=== PATIENT | female | born 1955 | race Caucasian/White ===

== ENCOUNTER 2021-11-09 20:12 | Inpatient (IN) | payer BC, OTHER ==
[2021-11-09 21:51] LABS: Basophils # (A) 0.1 k/uL (0-0.2); Basophils % (A) 1 %; Eosinophils # (A) 0.2 k/uL (0-0.7); Eosinophils % (A) 2 %; HCT 47.4 % (34.0-46.0); HGB 15.8 gm/dL (11.4-16.0); Lymphocytes # (A) 2.3 k/uL (1.0-4.8); Lymphocytes % (A) 30 %; MCH 30.1 pg (25.0-35.0); MCHC 33.4 g/dL (31.0-37.0); MCV 90.3 fL (80.0-100.0); Mean Platelet Volume 8.3; Monocytes # (A) 0.4 k/uL (0-1.0); Monocytes % (A) 6 %; Neutrophils # (A) 4.5 k/uL (1.3-7.7); Neutrophils % (A) 59 %; Platelet Count 186 k/uL (150-450); RBC 5.25 m/uL (3.80-5.40); RDW 13.3 % (11.5-15.5); WBC 7.7 k/uL (3.8-10.6)
[2021-11-09 21:59] LABS: INR 0.9 (<1.2); Partial Thromboplastin Time 22.3 sec (22.0-30.0)
[2021-11-09 22:00] LABS: ALT 41 U/L (4-34); AST 33 U/L (14-36); African American GFR (CKD) >90 (>60 ml/min/1.73 sqM); Albumin 3.9 g/dL (3.5-5.0); Alcohol <10 mg/dL; Alkaline Phosphatase 69 U/L (38-126); Anion Gap 9 mmol/L; Blood Urea Nitrogen 10 mg/dL (7-17); Calcium 9.5 mg/dL (8.4-10.2); Carbon Dioxide 24 mmol/L (22-30); Chloride 104 mmol/L (98-107); Glucose 125 mg/dL (74-99); Non-African American GFR(CKD) >90 (>60 ml/min/1.73 sqM); Potassium 4.1 mmol/L (3.5-5.1); Sodium 137 mmol/L (137-145); Total Bilirubin 0.7 mg/dL (0.2-1.3); Total Protein 6.9 g/dL (6.3-8.2)
--- NOTE | 2021-11-09 22:04 | XR ---
EXAMINATION TYPE: XR chest 2V DATE OF EXAM: 11/09/2021 9:50 PM COMPARISON:Multiple radiographs, with the most recent on CT chest 09/13/2011 TECHNIQUE: Frontal and lateral views of the chest. CLINICAL INDICATION:Female, 65 years old with history of altered mental status; FINDINGS: Lungs/Pleura: There is no evidence of pleural effusion, focal consolidation, or pneumothorax. Pulmonary vascularity: Unremarkable. Heart/mediastinum: Cardiomediastinal silhouette is unremarkable. Musculoskeletal: No acute osseous pathology. IMPRESSION: No acute cardiopulmonary disease/process.
--- NOTE | 2021-11-09 22:22 | CT ---
EXAMINATION TYPE: CT brain wo con DATE OF EXAM: 11/09/2021 COMPARISON: 09/07/2011 HISTORY: weakness, confusion CT DLP: 1127.2 mGycm Automated exposure control for dose reduction was used. Images of the brain obtained without contrast. There is mild cerebral atrophy. There is no mass effect or midline shift. There is no sign of intracr anial hemorrhage. Calvarium is intact. There is normal aeration of the mastoid sinuses. IMPRESSION: Negative unenhanced head CT scan. No change.
--- NOTE | 2021-11-09 23:06 | ED ---
Weakness HPI - General Chief complaint: Weakness Stated complaint: Weakness Source: patient, EMS Mode of arrival: EMS Limitations: no limitations - History of Present Illness Initial comments: 65-year-old female past history of CVA presents emergency Department with altered mental status. Daughter is at bedside and provides the history. The patient was recently hospitalized at [facility] for possible stroke. She had some confusion and acute speech change. CT was performed and the patient was transferred to [facility] for further stroke workup. She does have known aneurysm and therefore MRI was performed. Patient was discharged home with a referral for home care and follow-up with neurosurgery for possible aneurysm intervention. Daughter states that since the patient has been home she's been confused. She forgets to take her insulin. She is unable to cook or care for herself. Daughter believes that she does need placement. She was awake until tomorrow to speak with the primary care physician. Tonight around 5:00 the patient's speech appeared to get worse according to the daughter. She became less responsive and was flushed in the face. At this time she called EMS. Patient arrives with some delayed speech and appears distant. She is able to answer most questions appropriately. She denies any pain. Patient has been taking her Plavix without any missed doses. The remainder of the HPI is limited because the patient's current mentation - Related Data Home Medications Medication Instructions Recorded Confirmed Aspirin EC [Ecotrin] 325 mg PO DAILY 11/09/21 11/09/21 Atorvastatin Calcium [Lipitor] 80 mg PO HS 11/09/21 11/09/21 Clopidogrel [Plavix] 75 mg PO DAILY 11/09/21 11/09/21 Insulin NPH Human Isophane 12 units SQ BID 11/09/21 11/09/21 [NovoLIN N] Insulin Regular, Human [NovoLIN R] 6 unit SQ TID-W/MEALS 11/09/21 11/09/21 Insulin Regular, Human [NovoLIN R] See Protocol SQ PC-TID PRN 11/09/21 11/09/21 Allergies Allergy/AdvReac Type Severity Reaction Status Date / Time codeine AdvReac "Tears her Verified 11/09/21 21:31 stomach up" Review of Systems ROS Statement: Those systems with pertinent positive or pertinent negative responses have been documented in the HPI. ROS Other: All systems not noted in ROS Statement are negative. Past Medical History Past Medical History: CVA/TIA, Eye Disorder, Fibromyalgia, Hyperlipidemia, Osteoarthritis (OA) Additional Past Medical History / Comment(s): HX COLITIS-LAST BIG FLARE UP 2009- LATELY SLIGHT FLARE UP DIARRHEA-FATIQUE- BLOOD IN STOOL-ABD. PAIN-JOINT PAIN, RT KNEE NEEDS REPLACEMENT-GIVES OUT & PAINFUL, GLASSES DAILY USE-MOSTLY FOR DISTANCE History of Any Multi-Drug Resistant Organisms: None Reported Past Surgical History: Cholecystectomy, Joint Replacement Additional Past Surgical History / Comment(s): LEFT KNEE REPLACEMENT Past Anesthesia/Blood Transfusion Reactions: Family History of Problems w/ Anesthesia, Motion Sickness, Postoperative Nausea & Vomiting (PONV) Additional Past Anesthesia/Blood Transfusion Reaction / Comment(s): AMUSEMENT RIDES OR ANYTHING THAT SPINS, MOM ALSO GETS PONV Past Psychological History: No Psychological Hx Reported Past Alcohol Use History: Occasional Past Drug Use History: None Reported - Past Family History Mother Family Medical History: Cancer, Thyroid Disorder Additional Family Medical History / Comment(s): CHOLECYSTECTOMY, SKIN CA ,HAD GOITER REMOVED AT A VERY YOUNG AGE Father Family Medical History: Dementia, Hyperlipidemia, Prostate Disorder Additional Family Medical History / Comment(s): ALZHEIMER'S DISEASE General Exam Limitations: no limitations Course Vital Signs 11/09/21 11/09/21 11/09/21 20:21 22:37 23:40 Temperature 98 F Pulse Rate 68 68 87 Respiratory 18 18 20 Rate Blood Pressure 148/83 115/66 120/86 O2 Sat by Pulse 96 98 95 Oximetry EKG Findings - EKG Comments: EKG Findings:: EKG demonstrates sinus rhythm with a ventricular rate of 64. AK interval 185. QRS 98. QTC of 423. No acute ST segment elevations or depressions concerning for ischemic changes Medical Decision Making - Medical Decision Making On arrival patient is placed into room 3. A thorough history and physical exam was performed. I did review the patient's packet from [place]. Patient does not feel as if her symptoms are any worse than when she was discharged from [place]. I did recommend repeating laboratory studies and imaging. Labs are reviewed and demonstrate no acute process. Urine is pending. CT of the brain as well as CT angiography is performed because the patient's own aneurysms. No acute findings on the CT of the brain. Aneurysm's are identified on the CT angiography without acute bleed. As the daughter states that the patient cannot take care of herself any longer she will be admitted for neurology consultation and possible rehab placement. Spoke with Dr. Dumont who agreed to admit the patient - Lab Data Result diagrams: 11/09/21 21:47 11/09/21 21:47 Lab Results 11/09/21 11/09/21 11/09/21 Range/Units 21:47 21:47 21:47 WBC 7.7 (3.8-10.6) k/uL RBC 5.25 (3.80-5.40) m/uL Hgb 15.8 (11.4-16.0) gm/dL Hct 47.4 H (34.0-46.0) % MCV 90.3 (80.0-100.0) fL MCH 30.1 (25.0-35.0) pg MCHC 33.4 (31.0-37.0) g/dL RDW 13.3 (11.5-15.5) % Plt Count 186 (150-450) k/uL MPV 8.3 Neutrophils % 59 % Lymphocytes % 30 % Monocytes % 6 % Eosinophils % 2 % Basophils % 1 % Neutrophils # 4.5 (1.3-7.7) k/uL Lymphocytes # 2.3 (1.0-4.8) k/uL Monocytes # 0.4 (0-1.0) k/uL Eosinophils # 0.2 (0-0.7) k/uL Basophils # 0.1 (0-0.2) k/uL PT 10.0 (9.0-12.0) sec INR 0.9 (<1.2) APTT 22.3 (22.0-30.0) sec Sodium 137 (137-145) mmol/L Potassium 4.1 (3.5-5.1) mmol/L Chloride 104 (98-107) mmol/L Carbon Dioxide 24 (22-30) mmol/L Anion Gap 9 mmol/L BUN 10 (7-17) mg/dL Creatinine 0.62 (0.52-1.04) mg/dL Est GFR (CKD-EPI)AfAm >90 (>60 ml/min/1.73 sqM) Est GFR (CKD-EPI)NonAf >90 (>60 ml/min/1.73 sqM) Glucose 125 H (74-99) mg/dL Calcium 9.5 (8.4-10.2) mg/dL Total Bilirubin 0.7 (0.2-1.3) mg/dL AST 33 (14-36) U/L ALT 41 H (4-34) U/L Alkaline Phosphatase 69 (38-126) U/L Troponin I (0.000-0.034) ng/mL Total Protein 6.9 (6.3-8.2) g/dL Albumin 3.9 (3.5-5.0) g/dL Serum Alcohol <10 mg/dL 11/09/21 Range/Units 21:47 WBC (3.8-10.6) k/uL RBC (3.80-5.40) m/uL Hgb (11.4-16.0) gm/dL Hct (34.0-46.0) % MCV (80.0-100.0) fL MCH (25.0-35.0) pg MCHC (31.0-37.0) g/dL RDW (11.5-15.5) % Plt Count (150-450) k/uL MPV Neutrophils % % Lymphocytes % % Monocytes % % Eosinophils % % Basophils % % Neutrophils # (1.3-7.7) k/uL Lymphocytes # (1.0-4.8) k/uL Monocytes # (0-1.0) k/uL Eosinophils # (0-0.7) k/uL Basophils # (0-0.2) k/uL PT (9.0-12.0) sec INR (<1.2) APTT (22.0-30.0) sec Sodium (137-145) mmol/L Potassium (3.5-5.1) mmol/L Chloride (98-107) mmol/L Carbon Dioxide (22-30) mmol/L Anion Gap mmol/L BUN (7-17) mg/dL Creatinine (0.52-1.04) mg/dL Est GFR (CKD-EPI)AfAm (>60 ml/min/1.73 sqM) Est GFR (CKD-EPI)NonAf (>60 ml/min/1.73 sqM) Glucose (74-99) mg/dL Calcium (8.4-10.2) mg/dL Total Bilirubin (0.2-1.3) mg/dL AST (14-36) U/L ALT (4-34) U/L Alkaline Phosphatase (38-126) U/L Troponin I <0.012 (0.000-0.034) ng/mL Total Protein (6.3-8.2) g/dL Albumin (3.5-5.0) g/dL Serum Alcohol mg/dL Disposition Clinical Impression: Acute encephalopathy, History of CVA (cerebrovascular accident), Cerebral aneurysm Disposition: ADMITTED IP TO THIS [facility] Condition: Stable Is patient prescribed a controlled substance at d/c from ED?: No Referrals: None,Stated [Primary Care Provider] - 1-2 days Decision to Admit Reason: Admit from EC Decision Date: 11/09/21 Decision Time: 23:57
--- NOTE | 2021-11-09 23:12 | CT ---
EXAMINATION TYPE: CT angio head neck DATE OF EXAM: 11/09/2021 COMPARISON: None HISTORY: ams, confusion, weakness CT DLP: 568.1 mGycm Automated exposure control for dose reduction was used. CONTRAST: Performed with IV Contrast, patient injected with 65cc mL of Isovue 370. Images obtained from the aortic arch to the vertex of the brain with IV contrast. There are Three-D p ostprocessed images. There is normal branching pattern of the great vessels on the aortic arch. There is bilateral arteria l flow in the subclavian arteries. There is arterial flow in both vertebral arteries. There is arteri al flow in the common internal and external carotid arteries bilaterally. There is wide patency of th e carotid artery bifurcations. There is no evidence of carotid or vertebral artery aneurysm or dissec tion. No evidence of stenosis. There is arterial flow in the anterior middle and posterior cerebral arteries. There are bilateral an eurysms at the anterior communicating artery. On the right side this measures 4 mm. Left-sided aneury sm measures 5 mm. There is bulbous appearance of the tip of the basilar artery that measures 4 mm. Th ere is no evidence of intracranial arterial hemodynamic stenosis. There is normal contrast opacificat ion of the venous sinuses. There is no mass effect. There is no sign of neovascularity. IMPRESSION: Negative CT angiogram of the neck. 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 There is a minimal aneurysm of the tip o f the basilar artery. No evidence of intracranial arterial stenosis.
[2021-11-09] MEDS ORDERED: NALOXONE 0.4 MG/ML 1 ML VIAL IV PRN (23:57)
[2021-11-10 00:18] LABS: Appearance,Urine Clear (Clear); Bilirubin,Urine Negative (Negative); Blood,Urine Negative (Negative); Color,Urine Light Yellow; Glucose,Urine (UA) Negative (Negative); Ketones,Urine Negative (Negative); Leukocyte Esterase,Urine Negative (Negative); Nitrite,Urine Negative (Negative); PH, Urine 5.5 (5.0-8.0); Protein,Urine Negative (Negative); Urobilinogen,Urine <2.0 mg/dL (<2.0)
[2021-11-10 00:23] LABS: Specific Gravity,Urine 1.047 (1.001-1.035)
[2021-11-10 00:30] LABS: Amphetamine Screen,Urine Not Detected (NotDetected); Barbiturate Screen,Urine Not Detected (NotDetected); Benzodiazepines Screen,Urine Not Detected (NotDetected); Cocaine Screen,Urine Not Detected (NotDetected); Methadone Screen, Urine Not Detected (NotDetected); Opiate Screen,Urine Not Detected (NotDetected); Oxycodone Screen, Urine Not Detected (NotDetected); Phencyclidine Screen,Urine Not Detected (NotDetected); Tricyclic Antidepressant,Urine Not Detected (NotDetected); Urn Cannabinoid Scrn Not Detected (NotDetected)
[2021-11-10] MEDS: ATORVASTATIN 80 MG TAB PO SCH ×2 (02:43→20:10)
--- NOTE | 2021-11-10 03:05 | P.HPIM ---
History of Present Illness H&P Date: 11/09/21 Chief Complaint: Generalized weakness 65-year-old female with diabetes mellitus hypertension recent stroke Patient reports experiencing stroke event about 10 days ago which resulted in expressive aphasia. Patient was also found to have brain aneurysms during that hospital stay and she was told to follow up outpatient. She was discharged home at that time, she thinks that she was doing fine up until today when she noticed that she is doing increasingly weak she denies any falls she denies any new onset focal neurologic deficits however she does report that she wasn't feeling well having difficulty with getting around in general. She otherwise denies any fevers or chills nausea or vomiting denies any chest pain or trouble breathing denies any vision changes hearing changes or any new onset focal neuro deficits. Per ED doctor her daughter brought her lives with her she noticed that her mom was not acting normally today and she has been getting increasingly hard and difficult to take care of. However when the patient is asked she reports that she is able to go to the bathroom on her own believes herself make meals change her close and get around. However she is was facing some challenges today that she couldn't exactly tell me or explain to me When asked about her goals she prefers to go home with some home therapy. She would like to avoid any rehab places. Otherwise she claims to be compliant with her medications she voices some concerns regarding the diagnosis of brain aneurysm. Her blood work in the ED came back unremarkable In the ED brain imaging was performed no acute pathology was noted Again patient denies any falling denies using any assistive devices of ambulation but she does report some difficulty with expressive aphasia Review of Systems Pertinent positives as noted in HPI. All other systems were reviewed and are negative Past Medical History Past Medical History: CVA/TIA, Eye Disorder, Fibromyalgia, Hyperlipidemia, Osteoarthritis (OA) Additional Past Medical History / Comment(s): HX COLITIS-LAST BIG FLARE UP 2009- LATELY SLIGHT FLARE UP DIARRHEA-FATIQUE- BLOOD IN STOOL-ABD. PAIN-JOINT PAIN, RT KNEE NEEDS REPLACEMENT-GIVES OUT & PAINFUL, GLASSES DAILY USE-MOSTLY FOR DISTANCE History of Any Multi-Drug Resistant Organisms: None Reported Past Surgical History: Cholecystectomy, Joint Replacement Additional Past Surgical History / Comment(s): LEFT KNEE REPLACEMENT Past Anesthesia/Blood Transfusion Reactions: Family History of Problems w/ Anesthesia, Motion Sickness, Postoperative Nausea & Vomiting (PONV) Additional Past Anesthesia/Blood Transfusion Reaction / Comment(s): AMUSEMENT RIDES OR ANYTHING THAT SPINS, MOM ALSO GETS PONV Past Psychological History: No Psychological Hx Reported Past Alcohol Use History: Occasional Past Drug Use History: None Reported - Past Family History Mother Family Medical History: Cancer, Thyroid Disorder Additional Family Medical History / Comment(s): CHOLECYSTECTOMY, SKIN CA ,HAD GOITER REMOVED AT A VERY YOUNG AGE Father Family Medical History: Dementia, Hyperlipidemia, Prostate Disorder Additional Family Medical History / Comment(s): ALZHEIMER'S DISEASE Medications and Allergies Home Medications Medication Instructions Recorded Confirmed Type Aspirin EC [Ecotrin] 325 mg PO DAILY 11/09/21 11/09/21 History Atorvastatin Calcium [Lipitor] 80 mg PO HS 11/09/21 11/09/21 History Clopidogrel [Plavix] 75 mg PO DAILY 11/09/21 11/09/21 History Insulin NPH Human Isophane 12 units SQ BID 11/09/21 11/09/21 History [NovoLIN N] Insulin Regular, Human [NovoLIN R] 6 unit SQ TID-W/MEALS 11/09/21 11/09/21 History Insulin Regular, Human [NovoLIN R] See Protocol SQ PC-TID PRN 11/09/21 11/09/21 History Allergies Allergy/AdvReac Type Severity Reaction Status Date / Time codeine AdvReac "Tears her Verified 11/09/21 21:31 stomach up" Physical Exam Vitals: Vital Signs Temp Pulse Resp BP Pulse Ox 11/09/21 23:40 87 20 120/86 95 11/09/21 22:37 68 18 115/66 98 11/09/21 20:21 98 F 68 18 148/83 96 Intake and Output 11/09/21 11/09/21 11/10/21 14:59 22:59 06:59 Other: Weight 86.183 kg Constitutional: No acute distress, conversant, pleasant Eyes: Anicteric sclerae, moist conjunctiva, Pupils equal round reactive to light ENMT: NC/AT Oropharynx clear, no erythema, or exudates Neck: Supple, FROM, no masses, or JVD No carotid bruits No thyromegaly Lungs: Clear to auscultation Clear to percussion Normal respiratory effort, no accessory muscle use Cardiovascular: Heart regular in rate and rhythm, No murmurs, gallops, or rubs No peripheral edema Abdominal: Soft Nontender, no guarding, rebound or rigidity Abdomen moving with respiration Normoactive bowel sounds No hepatomegaly, No splenomegaly No palpable mass No abdominal wall hernia noted Skin: Normal temperature, tone, texture, turgor No induration No subcutaneous nodules No rash, lesions No ulcers Extremities: No digital cyanosis No clubbing Pedal pulses intact and symmetrical Radial pulses intact and symmetrical No calf tenderness Psychiatric: Alert and oriented to person, place and time Appropriate affect fair judgement Neuro Muscles Strength 5/5 in all 4 extremities Sensation to light touch grossly present throughout Cranial nerves II-XII grossly intact No focal sensory deficits Finger-nose exam unremarkable Lymphatics: no palpable cervical or supraclavicular , or inguinal lymph nodes Results CBC & Chem 7: 11/09/21 21:47 11/09/21 21:47 Labs: Abnormal Lab Results - Last 24 Hours (Table) 11/09/21 11/09/21 Range/Units 21:47 21:47 Hct 47.4 H (34.0-46.0) % Glucose 125 H (74-99) mg/dL ALT 41 H (4-34) U/L Assessment and Plan Assessment: Expressive aphasia and generalized weakness Recent stroke event about 10 days ago Brain aneurysm Plan Supportive care Fall precautions Neurology evaluation Neurochecks every 2 hours Resume home medications aspirin, statin, Plavix Cardiac diet PT eval Diabetes mellitus Resume home insulin dosing Is full code DVT prophylaxis mechanical Anticipated length of stay less than 2 midnights
[2021-11-10 05:38] LABS: Basophils # (A) 0.1 k/uL (0-0.2); Basophils % (A) 1 %; Eosinophils # (A) 0.2 k/uL (0-0.7); Eosinophils % (A) 2 %; HCT 48.7 % (34.0-46.0); HGB 16.3 gm/dL (11.4-16.0); Lymphocytes # (A) 2.2 k/uL (1.0-4.8); Lymphocytes % (A) 26 %; MCH 30.6 pg (25.0-35.0); MCHC 33.5 g/dL (31.0-37.0); MCV 91.5 fL (80.0-100.0); Mean Platelet Volume 8.2; Monocytes # (A) 0.5 k/uL (0-1.0); Monocytes % (A) 6 %; Neutrophils # (A) 5.3 k/uL (1.3-7.7); Neutrophils % (A) 64 %; Platelet Count 174 k/uL (150-450); RBC 5.32 m/uL (3.80-5.40); RDW 13.5 % (11.5-15.5); WBC 8.3 k/uL (3.8-10.6)
[2021-11-10 05:52] LABS: African American GFR (CKD) >90 (>60 ml/min/1.73 sqM); Anion Gap 7 mmol/L; Blood Urea Nitrogen 10 mg/dL (7-17); Calcium 9.6 mg/dL (8.4-10.2); Carbon Dioxide 25 mmol/L (22-30); Chloride 106 mmol/L (98-107); Glucose 144 mg/dL (74-99); Non-African American GFR(CKD) >90 (>60 ml/min/1.73 sqM); Potassium 3.9 mmol/L (3.5-5.1); Sodium 138 mmol/L (137-145)
[2021-11-10 07:26] LABS: Glucose,Whole Blood 151 mg/dL (75-99)
[2021-11-10] MEDS: INSULIN REGULAR 100 UNIT/ML VIAL (IV) SQ SCH ×3 (08:19→17:14)
[2021-11-10] MEDS: CLOPIDOGREL 75 MG TAB PO SCH (08:19)
[2021-11-10] MEDS: INSULIN NPH 300 UNIT/3 ML VIAL SQ SCH ×2 (08:19→21:20)
[2021-11-10] MEDS: ASPIRIN 325 MG TAB PO SCH (08:19)
[2021-11-10 11:10] LABS: Glucose,Whole Blood 232 mg/dL (75-99)
--- NOTE | 2021-11-10 15:29 | P.PN ---
Subjective Progress Note Date: 11/10/21 History of present illness: 65-year-old female with diabetes mellitus hypertension recent stroke Patient reports experiencing stroke event about 10 days ago which resulted in expressive aphasia. Patient was also found to have brain aneurysms during that hospital stay and she was told to follow up outpatient. She was discharged home at that time, she thinks that she was doing fine up until today when she noticed that she is doing increasingly weak she denies any falls she denies any new onset focal neurologic deficits however she does report that she wasn't feeling well having difficulty with getting around in general. She otherwise denies any fevers or chills nausea or vomiting denies any chest pain or trouble breathing denies any vision changes hearing changes or any new onset focal neuro deficits. Per ED doctor her daughter brought her lives with her she noticed that her mom was not acting normally today and she has been getting increasingly hard and difficult to take care of. However when the patient is asked she reports that she is able to go to the bathroom on her own believes herself make meals change her close and get around. However she is was facing some challenges today that she couldn't exactly tell me or explain to me When asked about her goals she prefers to go home with some home therapy. She would like to avoid any rehab places. Otherwise she claims to be compliant with her medications she voices some concerns regarding the diagnosis of brain aneurysm. Her blood work in the ED came back unremarkable In the ED brain imaging was performed no acute pathology was noted Again patient denies any falling denies using any assistive devices of ambulation but she does report some difficulty with expressive aphasia Interval history: Patient was examined at bedside. She is awake alert oriented 2. She denies any chest pain or shortness of breath. Patient seems to be confused and having difficulty finding words. Otherwise no acute changes reported overnight. Objective - Vital Signs Vital signs: Vital Signs Temp 97.9 F 11/10/21 07:00 Pulse 68 11/10/21 07:00 Resp 18 11/10/21 07:00 BP 118/79 11/10/21 07:00 Pulse Ox 94 L 11/10/21 07:31 Intake & Output 11/09/21 11/10/21 11/10/21 18:59 06:59 18:59 Weight 86.183 kg Other: # Voids 2 - Exam General: non toxic, no distress, appears at stated age Derm: warm, dry Head: atraumatic, normocephalic, symmetric Eyes: EOMI, no lid lag, anicteric sclera Mouth: no lip lesion, mucus membranes moist Cardiovascular: S1S2 reg, no murmur, positive posterior tibial pulse bilateral, Lungs: CTA bilateral, no rhonchi, no rales , no accessory muscle use Abdominal: soft, nontender to palpation, no guarding, no appreciable o rganomegaly Ext: no gross muscle atrophy, no edema, no contractures Neuro: CN II-XI grossly intact, no focal neuro deficits Psych: Alert, oriented 2, appropriate affect - Labs CBC & Chem 7: 11/10/21 05:18 11/10/21 05:18 Labs: Abnormal Lab Results - Last 24 Hours (Table) 11/09/21 11/09/21 11/09/21 Range/Units 21:47 21:47 23:50 Hgb (11.4-16.0) gm/dL Hct 47.4 H (34.0-46.0) % Glucose 125 H (74-99) mg/dL POC Glucose (mg/dL) (75-99) mg/dL ALT 41 H (4-34) U/L Ur Specific [place] 1.047 H (1.001-1.035) 11/10/21 11/10/21 11/10/21 Range/Units 05:18 05:18 07:25 Hgb 16.3 H (11.4-16.0) gm/dL Hct 48.7 H (34.0-46.0) % Glucose 144 H (74-99) mg/dL POC Glucose (mg/dL) 151 H (75-99) mg/dL ALT (4-34) U/L Ur Specific [place] (1.001-1.035) 11/10/21 Range/Units 11:08 Hgb (11.4-16.0) gm/dL Hct (34.0-46.0) % Glucose (74-99) mg/dL POC Glucose (mg/dL) 232 H (75-99) mg/dL ALT (4-34) U/L Ur Specific [place] (1.001-1.035) Assessment and Plan Assessment: #Expressive aphasia and generalized weakness -Recent stroke event about 10 days ago -Recently diagnosed Brain aneurysm -Neurology following -MRI the patient without contrast -PT/OT evaluation -Fall precautions -Neurochecks every 2 hours -Obtain records from [facility] -Resume home medications aspirin, high-dose statin, Plavix -Cardiac and diabetic diet diet #Type 2 diabetes mellitus Resume home insulin dosing Full code DVT prophylaxis with subcutaneous Lovenox Anticipated length of stay less than 2
[2021-11-10] MEDS: ENOXAPARIN 40 MG/0.4 ML SYRINGE SQ SCH (15:54)
[2021-11-10 16:29] LABS: Glucose,Whole Blood 119 mg/dL (75-99)
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
--- NOTE | 2021-11-10 19:00 | EEG ---
ELECTROENCEPHALOGRAM REPORT DATE OF SERVICE: 11/10/2021 PREAMBLE: This is a 65-year-old female with a history of recent stroke who has altered mental status. This study is performed to evaluate for any encephalopathy versus any epileptiform activity. EEG FINDINGS: This is a 21-channel digital EEG recorded with video component, utilizing 10/20 international system with referential and bipolar montages. Background consists of well-developed but moderately well regulated, mixed frequencies of 8 hertz alpha with 6 hertz theta activity seen in bihemispheric region. Some low-voltage beta was seen in the frontal region. Background does not seem to be clearly reactive to eye opening or closing. There is near-constant focal dysmorphic delta and some theta slowing seen in the left temporal region. Some sharply contoured waves were seen in the left temporal region, but did not appear epileptiform. Some stage II sleep was seen with presence of sleep spindles. Photic driving response was not seen. No focal or generalized epileptiform activity was seen. EKG channel showed no obvious arrhythmia. IMPRESSION: This is an abnormal EEG due to: 1. Background slowing of mild to moderate degree, suggestive of encephalopathy of toxic, metabolic or vascular causes. 2. Near-continuous focal slowing in polymorphic delta and theta range involving the left temporal region. This is suggestive of focal cortical neuronal dysfunction and may suggest underlying structural abnormality. 3. Some left temporal sharply contoured waves were seen which did not appear clearly epileptiform. If your suspicion for seizure is high, suggest prolonged, sleep- deprived EEG. Clinical correlation also recommended. MMNATI / HARRISON: [id number] /
[2021-11-10 20:58] LABS: Glucose,Whole Blood 230 mg/dL (75-99)
--- NOTE | 2021-11-10 22:14 | MR ---
EXAMINATION TYPE: MR brain wo con DATE OF EXAM: 11/10/2021 COMPARISON: CT scan yesterday HISTORY: Expressive aphasia. Multiplanar multiecho imaging of the brain without contrast. There is a 20 x 8 mm area of increased signal on the FLAIR images within the anterior left thalamus. This has also slightly increased signal on the diffusion images and consistent with subacute infarct. There is no mass effect. There is no midline shift. On the FLAIR images there are multiple scattered white matter high signal foci at the hopper-white pauline er junction of both cerebral hemispheres. These measure up to 1 cm and total number is more than 25. The corpus callosum appears intact. The brainstem appears intact. There is no evidence of posterior f kelly mass. Sella turcica appears normal. Optic chiasm appears normal. There is no evidence of orbital mass. IMPRESSION: Subacute anterior left thalamic infarct without change in size compared to the CT scan yesterday. Multiple white matter high signal foci in posterior bilateral hemispheres are somewhat peripheral and consistent with microvascular ischemia. No evidence of cerebral cortical infarct.
[2021-11-11 07:10] LABS: Glucose,Whole Blood 170 mg/dL (75-99)
[2021-11-11] MEDS: INSULIN REGULAR 100 UNIT/ML VIAL (IV) SQ SCH ×2 (09:11→18:19)
[2021-11-11] MEDS: INSULIN NPH 300 UNIT/3 ML VIAL SQ SCH (09:13)
[2021-11-11] MEDS: CLOPIDOGREL 75 MG TAB PO SCH (09:16)
[2021-11-11] MEDS: ENOXAPARIN 40 MG/0.4 ML SYRINGE SQ SCH (09:16)
[2021-11-11] MEDS: ASPIRIN 325 MG TAB PO SCH (09:16)
[2021-11-11 11:32] LABS: Glucose,Whole Blood 248 mg/dL (75-99)
[2021-11-11 11:34] VITALS: BMI 31.6
--- NOTE | 2021-11-11 13:18 | P.PN ---
Subjective Progress Note Date: 11/11/21 History of present illness: 65-year-old female with diabetes mellitus hypertension recent stroke Patient reports experiencing stroke event about 10 days ago which resulted in expressive aphasia. Patient was also found to have brain aneurysms during that hospital stay and she was told to follow up outpatient. She was discharged home at that time, she thinks that she was doing fine up until today when she noticed that she is doing increasingly weak she denies any falls she denies any new onset focal neurologic deficits however she does report that she wasn't feeling well having difficulty with getting around in general. She otherwise denies any fevers or chills nausea or vomiting denies any chest pain or trouble breathing denies any vision changes hearing changes or any new onset focal neuro deficits. Per ED doctor her daughter brought her lives with her she noticed that her mom was not acting normally today and she has been getting increasingly hard and difficult to take care of. However when the patient is asked she reports that she is able to go to the bathroom on her own believes herself make meals change her close and get around. However she is was facing some challenges today that she couldn't exactly tell me or explain to me When asked about her goals she prefers to go home with some home therapy. She would like to avoid any rehab places. Otherwise she claims to be compliant with her medications she voices some concerns regarding the diagnosis of brain aneurysm. Her blood work in the ED came back unremarkable In the ED brain imaging was performed no acute pathology was noted Again patient denies any falling denies using any assistive devices of ambulation but she does report some difficulty with expressive aphasia Interval history: Patient was examined at bedside. She is awake alert oriented 2. She denies any chest pain or shortness of breath. Patient seems to be confused and having difficulty finding words. Otherwise no acute changes reported overnight. Objective - Vital Signs Vital signs: Vital Signs Temp 98.2 F 11/11/21 07:00 Pulse 77 11/11/21 07:00 Resp 17 11/11/21 07:00 BP 131/86 11/11/21 07:00 Pulse Ox 95 11/11/21 08:54 Intake & Output 11/10/21 11/11/21 11/11/21 18:59 06:59 18:59 Intake Total 118 118 Balance 118 118 Weight 86.183 kg Intake: Oral 118 118 Other: # Voids 1 2 - Exam General: non toxic, no distress, appears at stated age Derm: warm, dry Head: atraumatic, normocephalic, symmetric Eyes: EOMI, no lid lag, anicteric sclera Mouth: no lip lesion, mucus membranes moist Cardiovascular: S1S2 reg, no murmur, positive posterior tibial pulse bilateral, Lungs: CTA bilateral, no rhonchi, no rales , no accessory muscle use Abdominal: soft, nontender to palpation, no guarding, no appreciable organomegaly Ext: no gross muscle atrophy, no edema, no contractures Neuro: CN II-XI grossly intact, no focal neuro deficits Psych: Alert, oriented 2, appropriate affect - Labs CBC & Chem 7: 11/10/21 05:18 11/10/21 05:18 Labs: Abnormal Lab Results - Last 24 Hours (Table) 11/10/21 11/10/21 11/10/21 Range/Units 05:18 16:27 20:57 POC Glucose (mg/dL) 119 H 230 H (75-99) mg/dL Hemoglobin A1c 13.8 H (0.0-6.0) % 11/11/21 11/11/21 Range/Units 07:08 11:30 POC Glucose (mg/dL) 170 H 248 H (75-99) mg/dL Hemoglobin A1c (0.0-6.0) % Assessment and Plan Assessment: #Expressive aphasia and generalized weakness -Recent stroke event about 10 days ago -Recently diagnosed Brain aneurysm. Neurology recommended to follow-up intervention as an outpatient -Neurology following -MRI the patient without contrast showed subacute anterior left thalamic infarct without change in size in comparison to computed tomography scan. -PT/OT evaluation -Fall precautions -Neurochecks every 2 hours -Obtain records from [facility] at second -Resume home medications aspirin, high-dose statin, Plavix -Cardiac and diabetic diet diet #Type 2 diabetes mellitus with uncontrolled hyperglycemia -A1c is 13.8 -Discontinue NPH insulin and start basal bolus insulin with Levemir and NovoLog -Add lisinopril 2.5 mg daily Full code DVT prophylaxis with subcutaneous Lovenox Anticipated length of stay less than 2
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
[2021-11-11 16:46] LABS: Glucose,Whole Blood 148 mg/dL (75-99)
[2021-11-11] MEDS ORDERED: INSULIN ASPART (NovoLOG) 100 UNIT/ML VIAL SQ SCH ×3 (17:30)
[2021-11-11] MEDS: INSULIN ASPART (NovoLOG) 100 UNIT/ML VIAL SQ SCH (18:20)
[2021-11-11] MEDS: ATORVASTATIN 80 MG TAB PO SCH (20:34)
[2021-11-11 20:41] LABS: Glucose,Whole Blood 205 mg/dL (75-99)
[2021-11-11] MEDS: INSULIN DETEMIR (LEVEMIR) 100 UNIT/ML SYR SQ SCH (20:46)
[2021-11-12 07:10] LABS: Glucose,Whole Blood 144 mg/dL (75-99)
[2021-11-12] MEDS: ENOXAPARIN 40 MG/0.4 ML SYRINGE SQ SCH (08:37)
[2021-11-12] MEDS: CLOPIDOGREL 75 MG TAB PO SCH (08:38)
[2021-11-12] MEDS: INSULIN ASPART (NovoLOG) 100 UNIT/ML VIAL SQ SCH ×3 (08:38→19:36)
[2021-11-12] MEDS: ASPIRIN 325 MG TAB PO SCH (08:38)
[2021-11-12] MEDS: INSULIN DETEMIR (LEVEMIR) 100 UNIT/ML SYR SQ SCH ×2 (08:38→20:51)
--- NOTE | 2021-11-12 10:36 | P.CRDCN ---
History of Present Illness Consult date: 11/12/21 History of present illness: HISTORY OF PRESENT ILLNESS: This is a 65-year-old female with a past medical history significant for diabetes, hypertension, hyperlipidemia, nicotine dependence, and recent CVA. Patient does not follow with a insolvency practitioner. We have been asked to see the patient in consultation for PFO. Patient examined at the bedside. Patient was recently hospitalized at [facility] in [place]. Patient suffered a CVA of the left basal ganglia at that time. Patient underwent ALIDA revealing ejection fraction 55-60%, mild mitral regurgitation, left atrium showed no evidence of thrombus and that each show cavity or appendage. Right Atrium appeared normal. Doppler showed small bidirectional atrial level shunt. Small PFO noted. She also underwent a CT angios which did not reveal any significant stenosis of the carotid arteries. The patient underwent MRI at our facility revealing acute 6 x 3 mm peripheral subcortical infarct right parietal lobe. Patient denies any chest pain or pressure. She denies shortness of breath. She denies dizziness or lightheadedness. Patient denies any history of atrial fibrillation. She denies having any palpitations. * EKG reveals sinus mechanism with no signs of acute ischemia. * Chest xray no active cardio Pulmonary disease * CT brain: There is 1.7 cm area of low attenuation anterior left thalamus consistent with acute or subacute lacunar infarct and is a change compared to old exam. * Brain MRI: Acute 6 x 3 mm peripheral subcortical infarct right parietal lobe * Laboratory data: WBC 8.3. Hemoglobin 15.8. Platelet count 174. Sodium 138. Potassium 3.9. BUN 10. Creatinine 0.68. Troponin negative 1. TSH 4.130. * Current home cardiac medications include Plavix 75 mg daily, Lipitor 80 mg daily, and aspirin 325 mg daily REVIEW OF SYSTEMS: At the time of my exam: CONSTITUTIONAL: Denies fever or chills. HEENT: Denies blurred vision, vision changes, or eye pain. Denies hemoptysis CARDIOVASCULAR: Denies chest pain. Denies orthopnea. Denies PND. Denies palpitations RESPIRATORY: Denies shortness of breath. GASTROINTESTINAL: Denies abdominal pain. Denies nausea or vomiting. HEMATOLOGIC: Denies bleeding disorders. GENITOURINARY: Denies any blood in urine. SKIN: Denies pruitis. Denies rash. PHYSICAL EXAM: VITAL SIGNS: Reviewed. GENERAL: Well-developed in no acute distress. HEENT: Head is normocephalic. Pupils are equal, round. Sclerae anicteric. Mucous membranes of the mouth are moist. Neck supple. No JVD or thyromegaly LUNGS: Respirations even and unlabored. Lungs essentially clear to auscultation bilaterally. HEART: Regular rate and rhythm. S1 and S2 heard. ABDOMEN: Soft. Nondistended. Nontender. EXTREMITIES: Normal range of motion. No clubbing or cyanosis. Peripheral pulses intact. No lower extremity edema NEUROLOGIC: Awake and alert. Oriented x 3. ASSESSMENT: Acute CVA, right parietal lobe Recent CVA of left basal ganglia PFO Hypertension Hyperlipidemia Diabetes Nicotine dependence, patient states she quit smoking last week PLAN: Continue current cardiac medications Neurology following Continue telemetry monitoring NPO Patient to undergo PFO today with Dr. Bird Further recommendations pending patient course Nurse practitioner note has been reviewed by physician. Signing provider agrees with the documented findings, assessment, and plan of care. Past Medical History Past Medical History: CVA/TIA, Eye Disorder, Fibromyalgia, Hyperlipidemia, Osteoarthritis (OA) Additional Past Medical History / Comment(s): HX COLITIS-LAST BIG FLARE UP 2009- LATELY SLIGHT FLARE UP DIARRHEA-FATIQUE- BLOOD IN STOOL-ABD. PAIN-JOINT PAIN, RT KNEE NEEDS REPLACEMENT-GIVES OUT & PAINFUL, GLASSES DAILY USE-MOSTLY FOR DISTANCE History of Any Multi-Drug Resistant Organisms: None Reported Past Surgical History: Cholecystectomy, Joint Replacement Additional Past Surgical History / Comment(s): LEFT KNEE REPLACEMENT Past Anesthesia/Blood Transfusion Reactions: Family History of Problems w/ Anesthesia, Motion Sickness, Postoperative Nausea & Vomiting (PONV) Additional Past Anesthesia/Blood Transfusion Reaction / Comment(s): AMUSEMENT RIDES OR ANYTHING THAT SPINS, MOM ALSO GETS PONV Past Psychological History: No Psychological Hx Reported Past Alcohol Use History: Occasional Past Drug Use History: None Reported - Past Family History Mother Family Medical History: Cancer, Thyroid Disorder Additional Family Medical History / Comment(s): CHOLECYSTECTOMY, SKIN CA ,HAD GOITER REMOVED AT A VERY YOUNG AGE Father Family Medical History: Dementia, Hyperlipidemia, Prostate Disorder Additional Family Medical History / Comment(s): ALZHEIMER'S DISEASE Medications and Allergies Home Medications Medication Instructions Recorded Confirmed Type Aspirin EC [Ecotrin] 325 mg PO DAILY 11/09/21 11/09/21 History Atorvastatin Calcium [Lipitor] 80 mg PO HS 11/09/21 11/09/21 History Clopidogrel [Plavix] 75 mg PO DAILY 11/09/21 11/09/21 History Insulin NPH Human Isophane 12 units SQ BID 11/09/21 11/09/21 History [NovoLIN N] Insulin Regular, Human [NovoLIN R] 6 unit SQ TID-W/MEALS 11/09/21 11/09/21 History Insulin Regular, Human [NovoLIN R] See Protocol SQ PC-TID PRN 11/09/21 11/09/21 History Allergies Allergy/AdvReac Type Severity Reaction Status Date / Time codeine AdvReac "Tears her Verified 11/09/21 21:31 stomach up" Physical Exam Vitals: Vital Signs Temp Pulse Resp BP Pulse Ox 11/12/21 07:00 98.5 F 73 17 106/69 96 11/12/21 01:38 98.1 F 59 L 18 125/81 97 11/11/21 20:00 17 11/11/21 19:19 98.6 F 79 16 132/84 96 11/11/21 14:20 98.3 F 82 17 123/80 95 11/11/21 08:54 95 Intake and Output 11/11/21 11/12/21 11/12/21 22:59 06:59 14:59 Intake Total 118 118 Balance 118 118 Intake: Oral 118 118 Results 11/10/21 05:18 11/10/21 05:18 Current Medications Generic Name Dose Route Start Last Admin Trade Name Freq PRN Reason Stop Dose Admin Aspirin 325 mg 11/10/21 09:00 11/12/21 08:38 Aspirin 325 Mg Tab PO 325 mg DAILY MARY Administration Atorvastatin Calcium 80 mg 11/10/21 00:15 11/11/21 20:34 Atorvastatin 80 Mg Tab PO 80 mg HS MARY Administration Clopidogrel Bisulfate 75 mg 11/10/21 09:00 11/12/21 08:38 Clopidogrel 75 Mg Tab PO 75 mg DAILY MARY Administration Enoxaparin Sodium 40 mg 11/10/21 15:30 11/12/21 08:37 Enoxaparin 40 Mg/0.4 Ml Syringe SQ 40 mg DAILY MARY Administration Insulin Aspart 6 unit 11/11/21 17:30 11/12/21 08:38 Insulin Aspart (Novolog) 100 Unit/Ml Vial SQ 6 unit AC-TID MARY Administration Insulin Detemir 12 unit 11/12/21 07:00 11/12/21 08:38 Insulin Detemir (Levemir) 100 Unit/Ml Syr SQ 12 unit DAILY@0700 MARY Administration Insulin Detemir 12 unit 11/11/21 21:00 11/11/21 20:46 Insulin Detemir (Levemir) 100 Unit/Ml Syr SQ 12 unit HS MARY Administration Lisinopril 2.5 mg 11/11/21 13:45 11/12/21 08:38 Lisinopril 2.5 Mg Tab PO 2.5 mg DAILY MARY Administration Naloxone HCl 0.2 mg 11/09/21 23:57 Naloxone 0.4 Mg/Ml 1 Ml Vial IV Q2M PRN Opioid Reversal Intake and Output 11/11/21 11/12/21 11/12/21 22:59 06:59 14:59 Intake Total 118 118 Balance 118 118 Intake: Oral 118 118 11/10/21 05:18 11/10/21 05:18
[2021-11-12 11:31] LABS: Glucose,Whole Blood 180 mg/dL (75-99)
[2021-11-12] MEDS ORDERED: LIDOCAINE 1% INJ 10MG/ML (20 ML MDV) ONE (12:24)
[2021-11-12] MEDS ORDERED: HEPARIN SODIUM 1,000 UN/ML (10ML VL) ONE (13:05)
[2021-11-12] MEDS ORDERED: fentaNYL (PF) 50 MCG/ML 2 ML AMP ONE (13:07)
[2021-11-12] MEDS ORDERED: MIDAZOLAM 2 MG/2 ML VIAL IV ONE (13:08)
[2021-11-12] MEDS ORDERED: fentaNYL (PF) 50 MCG/ML 2 ML AMP IV ONE (13:08)
[2021-11-12] MEDS ORDERED: LIDOCAINE 1% INJ 10MG/ML (20 ML MDV) SQ ONE (13:10)
--- NOTE | 2021-11-12 13:29 | P.PN ---
Subjective History of present illness: This is a 65-year-old female with a past medical history significant for diabetes, hypertension, hyperlipidemia, nicotine dependence, and recent CVA. Patient does not follow with a hackler doll wigs. We have been asked to see the patient in consultation for PFO. Patient examined at the bedside. Patient was recently hospitalized at [facility] in [place]. Patient suffered a CVA of the left basal ganglia at that time. Patient underwent ALIDA revealing ejection fraction 55-60%, mild mitral regurgitation, left atrium showed no evidence of thrombus and that each show cavity or appendage. Right Atrium appeared normal. Doppler showed small bidirectional atrial level shunt. Small PFO noted. She also underwent a CT angios which did not reveal any significant stenosis of the carotid arteries. The patient underwent MRI at our facility revealing acute 6 x 3 mm peripheral subcortical infarct right parietal lobe. Interval history: Patient was examined at bedside. She is awake alert oriented 3. She denies any chest pain or shortness of breath. Patient scheduled for PFO repair today. Objective - Vital Signs Vital signs: Vital Signs Temp 98.2 F 11/12/21 09:53 Pulse 66 11/12/21 09:53 Resp 96 H 11/12/21 09:53 BP 115/74 11/12/21 09:53 Pulse Ox 96 11/12/21 07:00 Intake & Output 11/11/21 11/12/21 11/12/21 18:59 06:59 18:59 Intake Total 354 118 Balance 354 118 Weight 86.183 kg Intake: Oral 354 118 Other: # Voids 3 # Bowel Movements 1 - Exam General: non toxic, no distress, appears at stated age Derm: warm, dry Head: atraumatic, normocephalic, symmetric Eyes: EOMI, no lid lag, anicteric sclera Mouth: no lip lesion, mucus membranes moist Cardiovascular: S1S2 reg, no murmur, positive posterior tibial pulse bilateral, Lungs: CTA bilateral, no rhonchi, no rales , no accessory muscle use Abdominal: soft, nontender to palpation, no guarding, no appreciable organomegaly Ext: no gross muscle atrophy, no edema, no contractures Neuro: CN II-XI grossly intact, no focal neuro deficits Psych: Alert, oriented 2, appropriate affect - Labs CBC & Chem 7: 11/10/21 05:18 11/10/21 05:18 Labs: Abnormal Lab Results - Last 24 Hours (Table) 11/11/21 11/11/21 11/12/21 Range/Units 16:45 20:40 07:09 POC Glucose (mg/dL) 148 H 205 H 144 H (75-99) mg/dL 11/12/21 Range/Units 11:30 POC Glucose (mg/dL) 180 H (75-99) mg/dL Assessment and Plan Assessment: #Expressive aphasia and generalized weakness #Acute CVA in the right parietal lobe -Recent CVA of the left basal ganglia -Recently diagnosed Brain aneurysm. Neurology recommended to follow-up intervention as an outpatient -Neurology following -MRI at [facility] showed evidence of medial saving the right parietal lobe -Record from [facility] showed: ALIDA showed left ventricular systolic function normal with EF 55-60%. Mild MR. Left atrium showed no evidence of thrombus in the atrial cavity or appendage. The right atrium was normal. Doppler showed small bidirectional atrial level shunt. -PT/OT evaluation -Fall precautions -Neurochecks every 2 hours -Resume home medications aspirin, high-dose statin, Plavix -Cardiac and diabetic diet diet #PFO -Patient is scheduled for repair by cardiology today #Type 2 diabetes mellitus with uncontrolled hyperglycemia -A1c is 13.8 -Discontinue NPH insulin and start basal bolus insulin with Levemir and NovoLog -Add lisinopril 2.5 mg daily Full code DVT prophylaxis with subcutaneous Lovenox
[2021-11-12] MEDS ORDERED: HEPARIN SODIUM 1,000 UN/ML (10ML VL) IV ONE (13:30)
[2021-11-12] MEDS ORDERED: IV FLUID CONTINUATION 1,000 ML IV ONE ×2 (13:33)
[2021-11-12] MEDS ORDERED: IOPAMIDOL-370 50ML BTL INJ ONE (13:40)
--- NOTE | 2021-11-12 13:53 | P.PCN ---
Date of Procedure: 11/12/21 Operative Findings: PERCUTANEOUS CLOSURE OF PATENT FORAMEN OVALE (PFO) PERFORMING PHYSICIAN: Nadeem Bird MD, [facility] PROCEDURE PERFORMED: 1. Successful percutaneous closure of patent foramen ovale using 30 mm Amplatzer PFO Occluder with an excellent results and without any residual shunt. 2. Intracardiac echocardiogram imaging. 3. Right atrial angiogram. 4. Ultrasound-guided access of the right common femoral vein 2 INDICATION: This is a very pleasant 65-year-old female patient was diagnosed with a stroke. This is her second stroke. The stroke was confirmed by computed tomography scan. She is known to have a PFO based on transesophageal echocardiogram was performed in different hospital. APPROACH: Right common femoral vein and left common femoral vein COMPLICATION: None. LEVEL OF SEDATION: Moderate with sedation length of 30 minutes. PROCEDURE DESCRIPTION: After obtaining informed consent, the patient was brought to the cardiac cardiac catheterization technician. The right common femoral vein was cannulated x2 using micropuncture technique under ultrasound guidance, the micropuncture wire passed easily, then I placed two 8- Taiwanese sheath in the right groin. Subsequently I cannulated the left common femoral vein with the same technique and I placed an 8-Taiwanese sheath there as well. At that point, anticoagulation was initiated using heparin and the patient was given a bolus of 6,000 units of heparin IV with continuous ACT monitoring throughout the procedure. After that, the intracardiac echocardiogram probe was advanced through one of the venous sheath all the way to the right atrium where we did interrogate the interatrial septum and identified the patent foramen ovale which was measured about 35 mm. Subsequently, I did cross the patent foramen ovale using 0.035 J-wire with the backup support of multipurpose catheter. The wire was advanced all the way to the left upper pulmonary vein and subsequently the catheter was advanced over the wire to the left upper pulmonary vein. The 0.035 J-wire was pulled out and then I advanced a blu wire. Subsequently, the multipurpose catheter was withdrawn out and the wire was left in the left upper pulmonary vein. After that, I did prep the Amplatzer PFO occluder under saline. The device was loaded into the payloader machine operator, which was attached to the sheath. Subsequently, I did exchange my 8-Taiwanese sheath into the Shuttle sheath over a 0.035 blu wire. The sheath was advanced all the way under fluoroscopy guidance to the left atrium. Subsequently, the dilator of the sheath was withdrawn out along with the wire. After that, I did load the Amplatzer occluder under continuous saline flush to the sheath. The device was advanced all the way through the sheath were I did where I did deploy initially the left atrial occluder and then I pulled back the sheath and the left atrial occluder all the way to the interatrial septum and then I deployed the right atrial occluder after that. Before I released the device, I did interrogate the septum using ice images on multiple views. After I realized that the device was stable enough and in good position the device was released. Interrogation using ice was also performed after the device was released. By the end I did right atrial angiogram. The procedure was completed without any complication. POSTPROCEDURE MANAGEMENT: 1. Dual anti-platelet therapy. 2. An echo in 24 hours, in 1 week, in 4 weeks, as well as in 6 months. 5. Follow up
[2021-11-12] MEDS ORDERED: SODIUM CHLORIDE 0.9% 1,000 ML IV SCH (14:00)
[2021-11-12 17:01] LABS: Glucose,Whole Blood 110 mg/dL (75-99)
[2021-11-12 20:07] LABS: Glucose,Whole Blood 190 mg/dL (75-99)
[2021-11-12] MEDS: ATORVASTATIN 80 MG TAB PO SCH (20:51)
[2021-11-13 07:32] LABS: Glucose,Whole Blood 142 mg/dL (75-99)
--- NOTE | 2021-11-13 07:52 | XR ---
EXAMINATION TYPE: XR chest 2V DATE OF EXAM: 11/13/2021 7:45 AM COMPARISON:Chest radiographs from 11/09/2021 TECHNIQUE: XR chest 2V Frontal view of the chest. CLINICAL INDICATION:Female, 65 years old with history of ASD/PFO placement; FINDINGS: Lungs/Pleura: There is no evidence of pleural effusion, focal consolidation, or pneumothorax. Pulmonary vascularity: Unremarkable. Heart/mediastinum: Cardiomediastinal silhouette is unremarkable. Interval placement of atrial septal defect closure device appears in appropriate position projecting over the heart. Musculoskeletal: No acute osseous pathology. IMPRESSION: Placement of atrial septal closure device which appears in appropriate position.
[2021-11-13] MEDS: ENOXAPARIN 40 MG/0.4 ML SYRINGE SQ SCH (08:12)
[2021-11-13] MEDS: ASPIRIN 325 MG TAB PO SCH (08:12)
[2021-11-13] MEDS: CLOPIDOGREL 75 MG TAB PO SCH (08:12)
[2021-11-13] MEDS: INSULIN DETEMIR (LEVEMIR) 100 UNIT/ML SYR SQ SCH (08:12)
[2021-11-13] MEDS: INSULIN ASPART (NovoLOG) 100 UNIT/ML VIAL SQ SCH ×2 (08:13→12:59)
[2021-11-13 08:36] VITALS: BP 134/88; PULSE 88; RESP 16; TEMP 97.9
[2021-11-13] MEDS ORDERED: ASPIRIN 325 MG TAB PO SCH (09:00)
[2021-11-13] MEDS ORDERED: CLOPIDOGREL 75 MG TAB PO SCH (09:00)
[2021-11-13 12:24] LABS: Glucose,Whole Blood 163 mg/dL (75-99)
--- NOTE | 2021-11-13 12:32 | P.PN ---
Subjective This is a 65-year-old female with a past medical history significant for diabetes, hypertension, hyperlipidemia, nicotine dependence, and recent CVA. Patient does not follow with a wardrobe technician. We have been asked to see the patient in consultation for PFO. Patient examined at the bedside. Patient was recently hospitalized at [facility] in [place]. Patient suffered a CVA of the left basal ganglia at that time. Patient underwent ALIDA revealing ejection fraction 55-60%, mild mitral regurgitation, left atrium showed no evidence of thrombus and that each show cavity or appendage. Right Atrium appeared normal. Doppler showed small bidirectional atrial level shunt. Small PFO noted. She also underwent a CT angios which did not reveal any significant stenosis of the carotid arteries. The patient underwent MRI at our facility rev ealing acute 6 x 3 mm peripheral subcortical infarct right parietal lobe. Patient denies any chest pain or pressure. She denies shortness of breath. She denies dizziness or lightheadedness. Patient denies any history of atrial fibrillation. She denies having any palpitations. * EKG reveals sinus mechanism with no signs of acute ischemia. * Chest xray no active cardio Pulmonary disease * CT brain: There is 1.7 cm area of low attenuation anterior left thalamus consistent with acute or subacute lacunar infarct and is a change compared to old exam. * Brain MRI: Acute 6 x 3 mm peripheral subcortical infarct right parietal lobe * Laboratory data: WBC 8.3. Hemoglobin 15.8. Platelet count 174. Sodium 138. Potassium 3.9. BUN 10. Creatinine 0.68. Troponin negative 1. TSH 4.130. * Current home cardiac medications include Plavix 75 mg daily, Lipitor 80 mg daily, and aspirin 325 mg daily 11/13 Patient seen and examined. Patient denies any chest pain or pressure. No shortness breath. She did undergo PFO occluder device placement yesterday without complications. Echo today shows no complications with no further flow noted. PHYSICAL EXAM: VITAL SIGNS: Reviewed. GENERAL: Well-developed in no acute distress. HEENT: Head is normocephalic. Pupils are equal, round. Sclerae anicteric. Mucous membranes of the mouth are moist. Neck supple. No JVD or thyromegaly LUNGS: Respirations even and unlabored. Lungs essentially clear to auscultation bilaterally. HEART: Regular rate and rhythm. S1 and S2 heard. ABDOMEN: Soft. Nondistended. Nontender. EXTREMITIES: Normal range of motion. No clubbing or cyanosis. Peripheral pulses intact. No lower extremity edema NEUROLOGIC: Awake and alert. Oriented x 3. ASSESSMENT: Acute CVA, right parietal lobe Recent CVA of left basal ganglia PFO s/p PFO occluder device Hypertension Hyperlipidemia Diabetes Nicotine dependence, patient states she quit smoking last week PLAN: Patient is status post PFO occluder device 11/12/2021. Echo showing no complications and patient appears stable for discharge home from a cardiology standpoint. If additional concern of any underlying atrial fibrillation from neurology standpoint would consider 30 day event monitor outpatient. Objective - Vital Signs Vital signs: Vital Signs Temp 97.9 F 11/13/21 07:15 Pulse 88 11/13/21 08:00 Resp 16 11/13/21 08:00 BP 134/88 11/13/21 07:15 Pulse Ox 97 11/13/21 07:15 Intake & Output 11/12/21 11/13/21 11/13/21 18:59 06:59 18:59 Intake Total 386 Output Total 0 Balance 386 0 Intake: IV 150 Oral 236 Output: Emesis 0 Other: Voiding Method Toilet Toilet - Labs CBC & Chem 7: 11/10/21 05:18 11/10/21 05:18 Labs: Abnormal Lab Results - Last 24 Hours (Table) 11/12/21 11/12/21 11/13/21 Range/Units 16:58 20:05 07:31 POC Glucose (mg/dL) 110 H 190 H 142 H (75-99) mg/dL 11/13/21 Range/Units 12:23 POC Glucose (mg/dL) 163 H (75-99) mg/dL
[2021-11-13 12:37] LABS: African American GFR (CKD) >90 (>60 ml/min/1.73 sqM); Anion Gap 10 mmol/L; Blood Urea Nitrogen 10 mg/dL (7-17); Calcium 9.5 mg/dL (8.4-10.2); Carbon Dioxide 21 mmol/L (22-30); Chloride 106 mmol/L (98-107); Glucose 190 mg/dL (74-99); Non-African American GFR(CKD) >90 (>60 ml/min/1.73 sqM); Potassium 4.3 mmol/L (3.5-5.1); Sodium 137 mmol/L (137-145)
[2021-11-13 12:55] LABS: Basophils % (A) 0 %; Eosinophils # (A) 0.1 k/uL (0-0.7); Eosinophils % (A) 1 %; HCT 47.9 % (34.0-46.0); HGB 15.9 gm/dL (11.4-16.0); Lymphocytes # (A) 1.8 k/uL (1.0-4.8); Lymphocytes % (A) 23 %; MCH 30.3 pg (25.0-35.0); MCHC 33.3 g/dL (31.0-37.0); Mean Platelet Volume 8.5; Monocytes # (A) 0.4 k/uL (0-1.0); Monocytes % (A) 5 %; Neutrophils # (A) 5.3 k/uL (1.3-7.7); Neutrophils % (A) 69 %; Platelet Count 216 k/uL (150-450); RBC 5.27 m/uL (3.80-5.40); RDW 13.2 % (11.5-15.5); WBC 7.7 k/uL (3.8-10.6)
--- NOTE | 2021-11-13 13:05 | P.DS ---
Providers Date of admission: 11/11/21 15:31 Expected date of discharge: 11/13/21 Attending physician: Liza Smith MD Consults: 11/09/21 23:57 Consult Physician Urgent Consulting Provider: Luis Carlos Agee Consult Reason/Comments: acute encephalopathy, recent CVA Do you want consulting provider notified?: Yes 11/11/21 15:31 Consult Physician Routine Consulting Provider: Nadeem Bird Consult Reason/Comments: recurrent stroke with PFO Do you want consulting provider notified?: Yes Primary care physician: Stated None Hospital Course: History of present illness: This is a 65-year-old female with a past medical history significant for diabetes, hypertension, hyperlipidemia, nicotine dependence, and recent CVA. Patient does not follow with a sap security architect. We have been asked to see the patient in consultation for PFO. Patient examined at the bedside. Patient was recently hospitalized at [facility] in [place]. Patient suffered a CVA of the left basal ganglia at that time. Patient underwent ALIDA revealing ejection fraction 55-60%, mild mitral regurgitation, left atrium showed no evidence of thrombus and that each show cavity or appendage. Right Atrium appeared normal. Doppler showed small bidirectional atrial level shunt. Small PFO noted. She also underwent a CT angios which did not reveal any significant stenosis of the carotid arteries. The patient underwent MRI at our facility revealing acute 6 x 3 mm peripheral subcortical infarct right parietal lobe. Physical examination: General: non toxic, no distress, appears at stated age Derm: warm, dry Head: atraumatic, normocephalic, symmetric Eyes: EOMI, no lid lag, anicteric sclera Mouth: no lip lesion, mucus membranes moist Cardiovascular: S1S2 reg, no murmur, positive posterior tibial pulse bilateral, Lungs: CTA bilateral, no rhonchi, no rales , no accessory muscle use Abdominal: soft, nontender to palpation, no guarding, no appreciable organomegaly Ext: no gross muscle atrophy, no edema, no contractures Neuro: CN II-XI grossly intact, no focal neuro deficits Psych: Alert, oriented 2, appropriate affect Detailed problem list: #Expressive aphasia and generalized weakness #Acute CVA in the right parietal lobe -Recent CVA of the left basal ganglia -Symptoms improved -Recently diagnosed Brain aneurysm. Neurology recommended to follow-up intervention as an outpatient -Neurology following -MRI at [facility] showed evidence of medial saving the right parietal lobe -Record from [facility] showed: ALIDA showed left ventricular systolic function normal with EF 55-60%. Mild MR. Left atrium showed no evidence of thrombus in the atrial cavity or appendage. The right atrium was normal. Doppler showed small bidirectional atrial level shunt. -Physical therapy afforded the patient no need for rehab on discharge. #PFO -Status post closure by cardiology. 11 -Repeat echo done today November 13 -She will need repeat echo in one week in 6 months per cardiology recommendation -Is scheduled to follow-up with cardiology -Discussed with cardiology Dr. Medley for event monitor to be set up for the patient on discharge #Type 2 diabetes mellitus with uncontrolled hyperglycemia -A1c is 13.8 -Discontinue NPH insulin and start basal bolus insulin with Levemir and NovoLog -Add lisinopril 2.5 mg daily Time spent in discharge process 34 minutes Patient Condition at Discharge: Stable Plan - Discharge Summary New Discharge Prescriptions: New lisinopriL [Zestril] 2.5 mg PO DAILY 30 Days #30 tab Continue Insulin Regular, Human [NovoLIN R] 6 unit SQ TID-W/MEALS Clopidogrel [Plavix] 75 mg PO DAILY Aspirin EC [Ecotrin] 325 mg PO DAILY Insulin NPH Human Isophane [NovoLIN N] 12 units SQ BID Insulin Regular, Human [NovoLIN R] See Protocol SQ PC-TID PRN PRN Reason: HIGH BLOOD SUGAR Atorvastatin Calcium [Lipitor] 80 mg PO HS Discharge Medication List Aspirin EC [Ecotrin] 325 mg PO DAILY 11/09/21 [History] Atorvastatin Calcium [Lipitor] 80 mg PO HS 11/09/21 [History] Clopidogrel [Plavix] 75 mg PO DAILY 11/09/21 [History] Insulin NPH Human Isophane [NovoLIN N] 12 units SQ BID 11/09/21 [History] Insulin Regular, Human [NovoLIN R] 6 unit SQ TID-W/MEALS 11/09/21 [History] Insulin Regular, Human [NovoLIN R] See Protocol SQ PC-TID PRN 11/09/21 [History] lisinopriL [Zestril] 2.5 mg PO DAILY 30 Days #30 tab 11/13/21 [Rx] Follow up Appointment(s)/Referral(s): [facility] [NON-STAFF] - As Needed (Referral sent to the Medicaid waver program through [facility]. Contact them if any questions. ) [facility] [NON-STAFF] - As Needed (Contact when know when Pt will be moving into [facility] for Medicaid Waver Program to be set up.) [facility] [[facility]FF[facility] - 1-2 Days Luis Boggs MD [REFERRING] - 1-2 Days Tim Gonzalez MD [STAFF PHYSICIAN] - 1 Week Nadeem Bird MD [STAFF PHYSICIAN] - 1 Week Discharge/Stand Alone Forms: Who Do I Call?, Help In The Home, Personal Medicare Biller Discharge Disposition: HOME WITH HOME HEALTH SERVICES
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
--- NOTE | 2021-11-14 08:39 | ECHOF ---
Referral Reason:Post ASD/PFO Insertion MEASUREMENTS -------- HEIGHT: 165.1 cm WEIGHT: 86.2 kg BP: 122/75 RVIDd: 2.8 cm (< 3.3) IVSd: 1.2 cm (0.6 - 1.1) LVIDd: 4.0 cm (3.9 - 5.3) LVPWd: 1.2 cm (0.6 - 1.1) IVSs: 1.7 cm LVIDs: 2.5 cm LVPWs: 1.6 cm LA Diam: 3.1 cm (2.7 - 3.8) LAESV Index (A-L): 13.75 ml/m Ao Diam: 3.4 cm (2.0 - 3.7) AV Cusp: 2.3 cm (1.5 - 2.6) MV EXCURSION: 11.800 mm (> 18.000) MV EF SLOPE: 26 mm/s (70 - 150) EPSS: 0.6 cm MV E Albino: 0.63 m/s MV DecT: 312 ms MV A Albino: 0.81 m/s MV E/A Ratio: 0.78 RAP: 15.00 mmHg RVSP: 31.14 mmHg FINDINGS -------- Sinus rhythm. This was a technically adequate study. The left ventricular size is normal. There is borderline concentric left ventricular hypertrophy. Overall left ventricular systolic function is normal with, an EF between 60 - 65 %. The right ventricle is normal in size. Normal LA size by volume 22+/-6 ml/m2. The right atrium is normal in size. There is an interatrial closure device in place without evidence of shunt. The aortic valve is trileaflet, and appears structurally normal. No aortic stenosis or regurgitation. The mitral valve is normal. Trace tricuspid regurgitation present. The pulmonic valve was not well visualized. The aortic root size is normal. Normal inferior vena cava with less than 50% inspiratory collapse consistent with estimated right atr ial pressure of 15 mmHg. There is no pericardial effusion. CONCLUSIONS -------- 1. The left ventricular size is normal. 2. There is borderline concentric left ventricular hypertrophy. 3. Overall left ventricular systolic function is normal with, an EF between 60 - 65 %. 4. There is an interatrial closure device in place without evidence of shunt. 5. Trace tricuspid regurgitation present. 6. Normal inferior vena cava with less than 50% inspiratory collapse consistent with estimated right atrial pressure of 15 mmHg. 7. There is no pericardial effusion. OVERCOILER: Claudine Dowd RDCS
== END 2021-11-13 16:21 | disposition home health service (06) | DRG 273 ==
LOC: EC 20:12 → 1SOBS 23:57 → 6NMEDSUR 11-10 00:33 → OBSVTOIN 11-11 15:31
PROVIDERS: ADMIT Internal Medicine; ATTEND Internal Medicine
PROC: B2141ZZ Fluoroscopy of Right Heart using Low Osmolar Contrast (ICD-10-PCS; principal; 2021-11-12 09:00)
PROC: B24BZZ4 Ultrasonography of Heart with Aorta, Transesophageal (ICD-10-PCS; principal; 2021-11-12 09:00)
PROC: 02U53JZ Supplement Atrial Septum with Synthetic Substitute, Percutaneous Approach (ICD-10-PCS; principal; 2021-11-12 09:00)
DX: Q21.1 Atrial septal defect (principal); I63.9 Cerebral infarction, unspecified; G93.49 Other encephalopathy; I67.1 Cerebral aneurysm, nonruptured; E11.65 Type 2 diabetes mellitus with hyperglycemia; Z79.4 Long term (current) use of insulin; Z20.822 Contact with and (suspected) exposure to COVID-19; I69.320 Aphasia following cerebral infarction; R41.89 Other symptoms and signs involving cognitive functions and awareness; R47.89 Other speech disturbances; I34.0 Nonrheumatic mitral (valve) insufficiency; I10 Essential (primary) hypertension; M79.7 Fibromyalgia; E78.5 Hyperlipidemia, unspecified; R90.82 White matter disease, unspecified; M19.90 Unspecified osteoarthritis, unspecified site; F17.210 Nicotine dependence, cigarettes, uncomplicated; Z79.02 Long term (current) use of antithrombotics/antiplatelets; Z79.82 Long term (current) use of aspirin; Z79.899 Other long term (current) drug therapy; Z87.19 Personal history of other diseases of the digestive system; Z90.49 Acquired absence of other specified parts of digestive tract; Z96.652 Presence of left artificial knee joint; Z86.69 Personal history of other diseases of the nervous system and sense organs; Z98.890 Other specified postprocedural states; Z88.5 Allergy status to narcotic agent; Z82.0 Family history of epilepsy and other diseases of the nervous system; Z83.49 Family history of other endocrine, nutritional and metabolic diseases; Z80.8 Family history of malignant neoplasm of other organs or systems; Z84.89 Family history of other specified conditions
CPT/HCPCS: 36415; 70450; 70496; 70498; 70551; 71046; 80048; 80053; 80306; 80320; 81003; 82607; 83036; 84443; 84484; 85025; 85610; 85730; 87635; 93005; 93306; 93580; 93662; 94760; 95816; 99285